=== PATIENT | male | born 1950 | race Caucasian/White ===

== ENCOUNTER 2018-03-24 12:27 | Emergency (ER) | payer MEDICARE, MEDICAID ==
[~2018-03-24] VITALS: Ht 177.8 cm; Wt 68.0 kg
[~2018-03-24 12:27] MED LIST: CARB200T3 PO; PHEN30TA PO; PHEN64.8 PO; PRIM250T PO
[2018-03-24 12:36] VITALS: BP 135/84
== END 2018-03-24 13:10 | disposition home or self-care (01) ==
LOC: ED 13:04
DX: L02.11 Cutaneous abscess of neck (principal); Z86.73 Personal history of transient ischemic attack (TIA), and cerebral infarction without residual deficits; F79 Unspecified intellectual disabilities; Z79.899 Other long term (current) drug therapy
CPT/HCPCS: 99283